=== PATIENT | male | born 1995 | race Asian ===

== ENCOUNTER 2025-07-22 06:23 | Day surgery (SDC) | payer OTHER, SELFPAY | END 2025-07-22 15:26 | disposition home or self-care (01) | LOC: GI 06:23 | PROVIDERS: ATTENDING PHYSICIAN Internal Medicine Gastroenterology | DX: K62.5 Hemorrhage of anus and rectum (principal); K64.8 Other hemorrhoids | CPT/HCPCS: 45378 ==